=== PATIENT | male | born 1990 | race Caucasian/White ===

== ENCOUNTER 2017-12-09 18:41 | Emergency (ER) | payer MEDICAID ==
[2017-12-09 18:47] VITALS: BP 131/91
--- NOTE | 2017-12-09 19:17 | EDPHY ---
H & P Time Seen by Provider: 12/09/17 18:59 HPI/ROS: CHIEF COMPLAINT: Dental pain HISTORY OF PRESENT ILLNESS: 27-year-old male postop day 4 post dental extraction of tooth number 2, in the ER complaining of odontalgia not relieved with Tylenol and Motrin. He is on antibiotics. Denies fever chills. Denies nausea or vomiting. PHYSICAL EXAM (Prior to examination, patient consented to physical exam, hands were washed and my usual and customary physical exam procedures followed) 1) GENERAL: Well-developed, well-nourished, alert and oriented. Appears uncomfortable. 2) HEAD: Normocephalic 3) ENT: sclera anicteric 4) LUNGS: Breathing comfortably. 5) SKIN: Symmetrical faces. Nasolabial fold symmetrical [6) oropharynx: Tender to percussion tooth 2. No evidence of apical abscess. No evidence of Elio's angina, submental and submandibular spaces are soft with no induration. Smoking Status: Never smoked Constitutional: Initial Vital Signs Temperature (C) 37 C 12/09/17 18:45 Heart Rate 94 12/09/17 18:45 Respiratory Rate 16 12/09/17 18:45 Blood Pressure 131/91 H 12/09/17 18:45 O2 Sat (%) 97 12/09/17 18:45 O2 Delivery Mode Room Air Allergies/Adverse Reactions: No Known Allergies Allergy (Unverified 12/09/17 18:44) Home Medications: Medication Instructions Recorded Doxycycline Calcium 12/09/17 Hydrocodone/APAP 5/325 [[place] 1 tab PO Q6 PRN #7 tab 12/09/17 5/325 (RX)] Ibuprofen 12/09/17 MDM/Departure - MDM Procedures: Procedure: dental nerve block Indication: odontalgia Indications risks benefits discussed patient and he consents. 1% plain bupivacaine administered by myself in usual customary fashion resulting and localized anesthesia. Patient tolerated procedure well. ED Course/Re-evaluation: No evidence of Elio's angina or deep space infection. Do not think that imaging studies are indicated. Plan will be discharge home with analgesia. Continue antibiotics. Follow up with his dentist in the next 1-2 days. He feels comfortable being discharged. Usual and customary odontogenic precautions and instructions provided. I saw this patient independently based on established practice protocols. Care of patient under supervision of secondary supervising physician Dr Barcenas. - Depart Disposition: Home, Routine, Self-Care Clinical Impression: Tooth ache Condition: Good Instructions: Toothache (ED) Additional Instructions: Return to the ER immediately if you cannot swallow, have drooling, fevers, neck stiffness, cannot open your jaw, or any other symptoms that concern you. Prescriptions: Hydrocodone/APAP 5/325 [[place] 5/325 (RX)] 1 tab PO Q6 PRN #7 tab PRN Reason: Pain, Severe Referrals: Follow-up, with your dentist in 1-2 days [Other] - As per Instructions
[2017-12-09] MEDS ORDERED: OXYCODONE/APAP 5/325 TAB PO ONE (19:33)
== END 2017-12-09 19:38 | disposition home or self-care (01) ==
PROC: 3E0X3BZ Introduction of Anesthetic Agent into Cranial Nerves, Percutaneous Approach (ICD-10-PCS; principal; 2017-12-09)
DX: G89.18 Other acute postprocedural pain (principal); K08.89 Other specified disorders of teeth and supporting structures